=== PATIENT | male | born 1990 | race African-American/Black ===

== ENCOUNTER 2016-11-11 00:18 | Emergency (ER) | payer SELFPAY ==
[~2016-11-11] VITALS: Ht 170.2 cm; Wt 75.0 kg
[~2016-11-11 00:18] MED LIST: RANI150 PO
[2016-11-11 00:20] VITALS: BP 140/82; PULSE 72; RESP 16; TEMP 100.6; O2SAT 99
[2016-11-11] MEDS ORDERED: CLIN150 PO (01:55)
[2016-11-11] MEDS ORDERED: BACT800T5 PO (01:55)
[2016-11-11] MEDS ORDERED: SULFAMETHOXAZOLE-TRIMETHOPRIM DS 800-160 MG TAB PO ONE (02:00)
[2016-11-11] MEDS ORDERED: CLINDAMYCIN INJ 900 MG in SODIUM CHLORIDE 0.9% INJ 100 ML IV ONE (02:00)
[2016-11-11] MEDS ORDERED: KETOROLAC TROMETHAMINE 30 MG/ML (IVP) VIAL IV PUSH ONE (02:00)
--- NOTE | 2016-11-11 02:06 | PD ---
HPI Chief Complaint: Skin Problem Time Seen by Provider: 02:02 Travel History International Travel<30 days: No Contact w/Intl Traveler<30days: No Traveled to known affect area: No History of Present Illness HPI 26-year-old black male presents to emergency department complaints of a cyst in his groin for the past several days. He states that he is been picking and squeezing the area. Has become increasing painful swollen. He denies any history of skin infections in the past. No fever chills. No drainage. Pain is mild to moderate. PFSH Past Medical History Medical History: Denies Significant Hx Diminished Hearing: No Immunizations Current: Yes Tetanus Vaccination: < 5 Years Past Surgical History Surgical History: No Previous Surgery Social History Alcohol Use: Yes (OCC) Tobacco Use: Yes (10/19 PPD) Substance Use: Yes (MARIJUANA 2X PER MONTH) Allergies-Medications (Allergen,Severity, Reaction): Coded Allergies: Bee Sting (Unverified Allergy, Severe, 11/11/16) Reported Meds & Prescriptions Reported Meds & Active Scripts Active Cleocin (Clindamycin HCl) 150 Mg Cap 300 Mg PO Q6H Bactrim DS (Sulfamethoxazole-Trimethoprim) 800-160 Mg Tab 1 Tab PO BID Review of Systems Except as stated in HPI: all other systems reviewed are Neg Physical Exam Narrative GENERAL: This is a well-nourished, well-developed patient, in no apparent distress. SKIN: Examination of the groin reveals an area of tenderness, thickening and induration of the pubic region just above the base of the penis. There is also some mild swelling of the base of the penis and scrotum. Each of the areas measure approximately 3 x 4 cm. There are tender, warm and indurated. There is no fluctuance or pointing. The patient has superficial scoring lesions from picking. There is no scrotal involvement. Positive inguinal adenopathy HEAD: Atraumatic. Normocephalic. EYES: PERRL, EOMI, no discharge or injection. No scleral icterus. EARS: Clear NOSE: Nasal turbinates appear normal. THROAT: Mucosa pink and moist. Airway patent. NECK: Trachea midline. supple, moves head freely. LUNGS: Clear to auscultation. CV: Regular in rhythm. ABDOMEN: Soft nontender. EXT: No clubbing cyanosis or edema. Data Data Last Documented VS Vital Signs Date Time Temp Pulse Resp B/P Pulse Ox O2 Delivery O2 Flow Rate FiO2 11/11/16 00:20 100.6 72 16 140/82 99 Orders Iv Access Insert/Monitor (11/11/16 01:53) Clindamycin Inj (Cleocin Inj) (11/11/16 02:00) Sulfamet-Trimeth Ds 800-160 Mg (Bactrim (11/11/16 02:00) Ketorolac Inj (Toradol Inj) (11/11/16 02:00) MDM Medical Decision Making Medical Screen Exam Complete: Yes Emergency Medical Condition: Yes Medical Record Reviewed: Yes Differential Diagnosis MDM: High Differential diagnoses: Abscess, folliculitis, cellulitis, lymphangitis, abrasion, contact dermatitis Narrative Course IV access is obtained. Patient's given clindamycin 900 mg IV, Bactrim DS by mouth. Toradol 30 mg IV. The patient is informed at this time there is no area to drain. He will continue warm compresses and take antibiotics and recheck in 48 hours. Patient rarely states understanding. This is right groin cellulitis, developing abscess Diagnosis Primary Impression: Cellulitis of right groin Additional Impression: developing abscess Patient Instructions: General Instructions Departure Forms: Tests/Procedures, Work Release Special Instructions: No work 2 days. Additional Instructions: Rest. No picking or squeezing. Warm compresses. Clindamycin, and Bactrim DS. Clindamycin will be 21 and all is at [facility]. The Bactrim DS will be free at [facility]. 3 Advil every 6 hours. Recheck in the ER in 2 days. Return to ER sooner if any problems. Med/Other Pt SpecificInfo: Prescription(s) given, Wound Care Scripts Clindamycin (Cleocin)150 Mg [id number] Mg PO Q6H #80 CAP Prov:Em Welsh MD 11/11/16 Sulfamethoxazole-Trimethoprim (Bactrim DS)800-160 Mg Tab1 Tab PO BID #20 TAB Prov:Em Welsh MD 11/11/16 Disposition: 01 DISCHARGE HOME Condition: Stable Dayron Ibrahim Nov 11, 2016 02:06
== END 2016-11-11 03:19 | disposition home or self-care (01) ==
LOC: NEPB 00:18
DX: L03.314 Cellulitis of groin (principal); L02.214 Cutaneous abscess of groin; F17.210 Nicotine dependence, cigarettes, uncomplicated; F12.90 Cannabis use, unspecified, uncomplicated
CPT/HCPCS: 96374; 96375; 99282; J1885